=== PATIENT | female | born 1955 | race Caucasian/White ===

== ENCOUNTER → 2018-07-30 14:57 | Outpatient (CLI) | payer MEDICARE, SELFPAY | PROVIDERS: Family Provider Internal Medicine; PCP Internal Medicine; Visit Provider Physician Assistant | DX: M85.851 Other specified disorders of bone density and structure, right thigh (principal); Z78.0 Asymptomatic menopausal state; Z82.62 Family history of osteoporosis | CPT/HCPCS: 77080 ==

== ENCOUNTER → 2018-09-06 10:52 | Outpatient (CLI) | payer MEDICARE, SELFPAY ==
--- NOTE | 2018-09-06 | DI.MG.S_ITS ---
BILATERAL DIGITAL SCREENING MAMMOGRAM 3D/2D WITH CAD: 09/06/2018 CLINICAL: Routine screening. Comparison is made to exams dated: 09/03/2017 mammogram, 08/14/2016 mammogram, and 07/29/2016 mammogram - [facility]. The tissue of both breasts is heterogeneously dense. This may lower the sensitivity of mammography. Current study was also evaluated with a Computer Aided Detection (CAD) system. There are benign post operative findings in the right breast. There also are benign vascular calcifications in both breasts. No significant masses, calcifications, or other findings are seen in either breast. There has been no significant interval change. IMPRESSION: There is no mammographic evidence of malignancy. A 1 year screening mammogram is recommended. This exam was interpreted at Station ID: [id number]. NOTE: For mammograms, a report in lay terms will be sent to the patient. Approximately 15% of breast malignancies will not be visualized mammographically. In the management of a palpable breast mass, a negative mammogram must not discourage biopsy of a clinically suspicious lesion. Electronically Signed By: Robbie charlton/montrell:09/06/2018 13:13:05 letter sent: Normal Exam ACR BI-RADS Category 2: Benign Finding(s) 3342F
== END ==
PROVIDERS: PCP Physician Assistant; Visit Provider Physician Assistant
DX: Z12.31 Encounter for screening mammogram for malignant neoplasm of breast (principal)
CPT/HCPCS: 77063; 77067

== ENCOUNTER → 2019-08-02 18:53 | Outpatient (ROUT) | payer MEDICARE, SELFPAY ==
[2019-08-02 19:18] LABS: Add Manual Diff / Slide Review NO; Basophils Absolute Auto 0 /uL (0-100); Eosinophils Absolute Auto 100 /uL (0-450); Eosinophils Percent Auto 2.7 % (2-4); Hematocrit 36.5 % (36-46); Hemoglobin 12.4 g/dL (12.0-16.0); Lymphocytes Absolute Auto 1300 /uL (1100-4500); Lymphocytes Percent Auto 32.2 % (25-40); Mean Corpuscular Hemoglobin 31.2 PG (26-34); Mean Corpuscular Volume 91.8 fL (80-100); Monocytes Absolute Auto 400 /uL (0-900); Monocytes Percent Auto 9.2 % (3-14); Neutrophils Absolute Auto 2200 /uL (1500-7000); Neutrophils Percent Auto 54.9 % (50-75); Platelet Count 254 X10^3/uL (150-400); Red Blood Cell Count 3.98 X10^6/uL (4.0-5.2); Red Cell Distribution Width 12.8 % (11.6-14.8)
[2019-08-02 19:21] LABS: Alanine Aminotransferase 17 IU/L (<35); Albumin 4.5 g/dL (3.5-5.0); Albumin Globulin Ratio 1.6 (1.0-2.8); Alkaline Phosphatase 66 U/L (38-126); Aspartate Aminotransferase 34 IU/L (14-36); BUN Creatinine Ratio 22.9 (6-22); Bilirubin Total 1.2 mg/dL (0.2-1.3); Blood Urea Nitrogen 16 mg/dL (7-17); Calcium 9.8 mg/dL (8.4-10.2); Carbon Dioxide 32 mmol/L (22-32); Chloride 98 mmol/L (98-107); Cholesterol 198 mg/dL (140-199); Estimated Glomerular Filt Rate > 60.0 mL/min (>60); Globulin 2.9 g/dL (1.7-4.1); Glucose 74 mg/dL (80-110); HDL Cholesterol 76 mg/dL (40-60); HEMOLYSIS < 15 (0-50); LDL Cholesterol Calculated 111 mg/dL (<100); Potassium 3.9 mmol/L (3.4-5.1); Sodium 138 mmol/L (137-145); Total Protein 7.4 g/dL (6.3-8.2); Triglycerides 56 mg/dL (35-150)
== END ==
PROVIDERS: PCP Physician Assistant; Visit Provider Physician Assistant
DX: M85.80 Other specified disorders of bone density and structure, unspecified site (principal); E55.9 Vitamin D deficiency, unspecified; E78.2 Mixed hyperlipidemia
CPT/HCPCS: 80053; 80061; 82306; 85025

== ENCOUNTER → 2019-09-08 11:42 | Outpatient (CLI) | payer MEDICARE, SELFPAY ==
--- NOTE | 2019-09-08 | DI.MG.S_ITS ---
BILATERAL DIGITAL SCREENING MAMMOGRAM 3D/2D WITH CAD: 09/08/2019 CLINICAL: Routine screening. Comparison is made to exams dated: 09/06/2018 mammogram, 09/03/2017 mammogram, 08/14/2016 mammogram, 07/29/2016 mammogram, and 07/27/2015 mammogram - [facility]. The tissue of both breasts is heterogeneously dense. This may lower the sensitivity of mammography. Current study was also evaluated with a Computer Aided Detection (CAD) system. There are benign vascular calcifications in both breasts. There also are benign post operative findings in the right breast. No significant masses, calcifications, or other findings are seen in either breast. There has been no significant interval change. IMPRESSION: There is no mammographic evidence of malignancy. A 1 year screening mammogram is recommended. This exam was interpreted at Station ID: [id number]. NOTE: For mammograms, a report in lay terms will be sent to the patient. Approximately 15% of breast malignancies will not be visualized mammographically. In the management of a palpable breast mass, a negative mammogram must not discourage biopsy of a clinically suspicious lesion. Electronically Signed By: Eddie bravo/montrell:09/08/2019 18:45:56 letter sent: Normal Exam ACR BI-RADS Category 2: Benign Finding(s) 3342F
== END ==
PROVIDERS: PCP Physician Assistant; Visit Provider Physician Assistant
DX: Z12.31 Encounter for screening mammogram for malignant neoplasm of breast (principal)
CPT/HCPCS: 77063; 77067

== ENCOUNTER → 2020-05-20 09:36 | Outpatient (CLI) | payer MEDICARE, SELFPAY ==
[2020-05-21 14:01] LABS: COVID19 Sendout Not Detected (Not Detect)
== END ==
PROVIDERS: PCP Physician Assistant; Visit Provider Family Medicine
DX: J02.9 Acute pharyngitis, unspecified (principal); R50.9 Fever, unspecified; R53.83 Other fatigue
CPT/HCPCS: 87635

== ENCOUNTER → 2020-10-25 10:44 | Outpatient (CLI) | payer MEDICARE, SELFPAY ==
--- NOTE | 2020-10-25 | DI.MG.S_ITS ---
BILATERAL DIGITAL SCREENING MAMMOGRAM 3D/2D WITH CAD: 10/25/2020 CLINICAL: Routine Screening. Comparison is made to exams dated: 09/08/2019 mammogram, 09/06/2018 mammogram, and 09/03/2017 mammogram - [facility]. The tissue of both breasts is heterogeneously dense. This may lower the sensitivity of mammography. Current study was also evaluated with a Computer Aided Detection (CAD) system. There are benign vascular calcifications in both breasts. There also are benign post operative findings in the right breast. No significant masses, calcifications, or other findings are seen in either breast. There has been no significant interval change. IMPRESSION: BENIGN There is no mammographic evidence of malignancy. A 1 year screening mammogram is recommended. This exam was interpreted at Station ID: [id number]. NOTE: For mammograms, a report in lay terms will be sent to the patient. Approximately 15% of breast malignancies will not be visualized mammographically. In the management of a palpable breast mass, a negative mammogram must not discourage biopsy of a clinically suspicious lesion. Electronically Signed By: Tami miguel/montrell:10/25/2020 11:31:33 letter sent: Normal Exam ACR BI-RADS Category 2: Benign Finding(s) 3342F
== END ==
PROVIDERS: PCP Physician Assistant; Referring Provider Physician Assistant; Visit Provider Physician Assistant
DX: Z12.31 Encounter for screening mammogram for malignant neoplasm of breast (principal)
CPT/HCPCS: 77063; 77067

== ENCOUNTER → 2020-10-26 13:26 | Outpatient (CLI) | payer MEDICARE, SELFPAY ==
[2020-10-26 14:34] LABS: Add Manual Diff / Slide Review NO; Basophils Absolute Auto 0 /uL (0-100); Basophils Percent Auto 1.1 % (0-2); Eosinophils Absolute Auto 100 /uL (0-450); Hematocrit 36.1 % (36-46); Hemoglobin 11.9 g/dL (12.0-16.0); Lymphocytes Absolute Auto 1300 /uL (1100-4500); Lymphocytes Percent Auto 35.4 % (25-40); Mean Corpuscular Hemoglobin 30.6 PG (26-34); Mean Corpuscular Volume 92.9 fL (80-100); Monocytes Absolute Auto 400 /uL (0-900); Monocytes Percent Auto 11.3 % (3-14); Neutrophils Absolute Auto 1800 /uL (1500-7000); Neutrophils Percent Auto 49.2 % (50-75); Platelet Count 245 X10^3/uL (150-400); Red Blood Cell Count 3.89 X10^6/uL (4.0-5.2); Red Cell Distribution Width 12.9 % (11.6-14.8); White Blood Cell Count 3.7 X10^3/uL (4.5-11.0)
[2020-10-26 15:02] LABS: Alanine Aminotransferase 18 IU/L (<35); Albumin 4.4 g/dL (3.5-5.0); Albumin Globulin Ratio 1.7 (1.0-2.8); Alkaline Phosphatase 54 U/L (38-126); Aspartate Aminotransferase 32 IU/L (14-36); Blood Urea Nitrogen 14 mg/dL (7-17); Calcium 9.9 mg/dL (8.4-10.2); Carbon Dioxide 32 mmol/L (22-32); Chloride 100 mmol/L (98-107); Estimated Glomerular Filt Rate > 60.0 mL/min (>60); Globulin 2.6 g/dL (1.7-4.1); Glucose 90 mg/dL (80-110); HEMOLYSIS < 15 (0-50); Sodium 139 mmol/L (137-145)
[2020-10-26 15:29] LABS: TSH w/ Reflex to FT4 1.24 uIU/mL (0.47-4.68)
== END ==
PROVIDERS: PCP Physician Assistant; Referring Provider Physician Assistant; Visit Provider Physician Assistant
DX: R00.2 Palpitations (principal); R42 Dizziness and giddiness
CPT/HCPCS: 80053; 83735; 84443; 85025; 93005

== ENCOUNTER 2020-11-02 10:34 | Emergency (ER) | payer MEDICARE, SELFPAY ==
[2020-11-02] VITALS (8 sets, daily range): BP systolic 125–166; BP diastolic 58–73; PULSE 59–69; RESP 20–44; TEMP 36.4; O2SAT 96–98; BMI 21.6
--- NOTE | 2020-11-02 10:57 | ED.ARRPALP ---
HPI - Arrhythmia/Palpitations General Chief Complaint: Arrhythmia/Palpitations Stated Complaint: Dr wants her to get a EKG. Time Seen by Provider: 11/02/20 10:43 Source: patient Mode of arrival: Family Vehicle Limitations: no limitations History of Present Illness HPI narrative: Patient is a 65-year-old female who over the past several days/weeks has been having episodes of palpitations and some lightheadedness. She has seen her primary doctor who ordered some labs and also did an EKG in the office. The patient states she was told that she was having premature ventricular contractions. A Holter monitor was ordered however the patient states there was a mixup in the ordering process of this and she has yet to receive it in the mail. Recently she had an increase in her palpitations and also an increase in her lightheadedness she contacted her primary doctor and told her to come to the emergency department for an EKG. Related Data Allergies Allergy/AdvReac Type Severity Reaction Status Date / Time Gadolinium-Containing Allergy Unknown Verified 11/02/20 10:52 Contrast Medi [GADOLINIUM-CONTAINING CONTRAST MEDI] epinephrine [EPINEPHRINE] AdvReac Unknown INCREASED Verified 11/02/20 10:52 HEART RATE MRI DYE Allergy Unknown Uncoded 11/02/20 10:52 Review of Systems Constitutional Constitutional: Denies fever(s) and Denies headache(s) ENT Ears, Nose, Mouth, and Throat: Denies headache(s) Cardiovascular Cardiovascular: Reports chest pain, Denies rapid heart rate, Reports irregular heart rhythm, Reports lightheadedness and Denies dyspnea Respiratory Respiratory: Denies cough and Denies dyspnea Gastrointestinal Gastrointestinal: Denies abdominal pain, Denies nausea and Denies vomiting Genitourinary Genitourinary: Denies dysuria Genitourinary: Denies dysuria Integumentary/Breasts Skin/Breast: Denies lesions and Denies rash Neurologic Neurologic: Denies behavioral changes and Denies headache(s) Psychiatric Psychiatric: Denies behavioral changes Hematologic/Lymphatic On Anticoagulants: No Patient History Medical History PVCs (premature ventricular contractions) Social History Smoking Status: Never smoker Smoking Status: Never smoker alcohol intake frequency: 0-2 drinks per day Substance Use Type: does not use Exam Initial Vital Signs Initial Vital Signs: Vital Signs Pulse Rate 69 11/02/20 10:39 Blood Pressure 166/73 H 11/02/20 10:39 Pulse Oximetry 96 11/02/20 10:39 Const General: cooperative, comfortable, well developed and well groomed Limitations: mental status not altered HENCO Head: normal to inspection and normocephalic Resp Effort & Inspection: normal respiratory effort Auscultation: clear to auscultation bilaterally Cardio Rate: regular rate Rhythm: regular rhythm GI Inspection: non-distended Palpation: soft and No firm Skin Lesions: no lesions Rashes: no rashes Neuro General: patient alert and patient awake Cognition: normal cognition Speech: speech normal Extrem General: capillary refill normal Psych Appearance: grossly normal and well kempt Course Orders Ordered: ED Orders 11/02/20 10:46 EKG-12 Lead Stat 11/02/20 11:20 Basic Metabolic Panel Stat Complete Blood Count AUTO DIFF Stat Magnesium Stat Troponin & CK Cardiac Panel Stat Vital Signs Vital signs: Vital Signs - 8 hr 11/02/20 10:39 11/02/20 10:43 11/02/20 11:00 Temperature 97.6 F Pulse Rate 69 65 63 Respiratory Rate 20 Blood Pressure 166/73 H 166/73 H Pulse Oximetry 96 96 96 11/02/20 11:23 Temperature Pulse Rate 64 Respiratory Rate 20 Blood Pressure 125/58 L Pulse Oximetry 96 MDM - Arrhythmia/Palpitations Lab Data Attestation: I reviewed the patient's lab results. Result diagrams: 11/02/20 11:20 11/02/20 11:20 Labs: Lab Results 11/02/20 11/02/20 Range/Units 11:20 11:20 WBC 3.2 L (4.5-11.0) X10^3/uL RBC 3.67 L (4.0-5.2) X10^6/uL Hgb 11.5 L (12.0-16.0) g/dL Hct 33.5 L (36-46) % MCV 91.4 (80-100) fL MCH 31.3 (26-34) PG MCHC 34.3 (30-36) % RDW 12.7 (11.6-14.8) % Plt Count 205 (150-400) X10^3/uL Neut % (Auto) 49.3 L (50-75) % Lymph % (Auto) 36.5 (25-40) % [place] % (Auto) 11.0 (3-14) % Eos % (Auto) 1.9 L (2-4) % Baso % (Auto) 1.3 (0-2) % Neut # (Auto) 1600 (6842-6203) /uL Lymph # (Auto) 1200 (6829-9296) /uL [place] # (Auto) 300 (0-900) /uL Eos # (Auto) 100 (0-450) /uL Baso # (Auto) 0 (0-100) /uL Sodium 139 (137-145) mmol/L Potassium 3.9 (3.4-5.1) mmol/L Chloride 104 (98-107) mmol/L Carbon Dioxide 29 (22-32) mmol/L BUN 13 (7-17) mg/dL Creatinine 0.56 (0.52-1.04) mg/dL Estimated GFR > 60.0 (>60) mL/min BUN/Creatinine Ratio 23.2 H (6-22) Glucose 88 (80-110) mg/dL Calcium 9.4 (8.4-10.2) mg/dL Magnesium 2.0 (1.6-2.3) mg/dL Total Creatine Kinase 71 (30-135) U/L CK-MB (CK-2) TNP CK-MB (CK-2) Rel Index TNP Troponin I < 0.012 (0.01-0.034) ng/mL ECG Data Attestation: I personally reviewed and interpreted this ECG as follows: Prior ECG tracings: not available for review Interpretation: Sinus rhythm Ventricular rate of 73 Occasional PVCs/PACs No ST T wave changes MDM Narrative Medical decision making narrative: Patient is nontoxic appearing. She does have PACs/PVCs on her EKG. Her labs are unremarkable. She has already seen her primary doctor and has a Holter monitor ordered. She had no other ectopy while being monitored here in the ER. Will have her continue to follow-up with her primary doctor regarding further workup and the Holter monitor. She was given return precautions and follow-up instructions. She expressed understanding and agreement. Discharge Plan Departure Patient Disposition: Home Clinical Impression: Palpitations Instructions: Arrhythmias Activity Restrictions/Additional Instructions: Recommend that you continue with all of your scheduled appointments with your primary provider. Continue all of your medications as directed. Return to the emergency department for any new or worsening symptoms Referrals: Taina Barrios PA-C [Primary Care Provider] -
[2020-11-02 11:28] LABS: Add Manual Diff / Slide Review NO; Basophils Absolute Auto 0 /uL (0-100); Basophils Percent Auto 1.3 % (0-2); Eosinophils Absolute Auto 100 /uL (0-450); Eosinophils Percent Auto 1.9 % (2-4); Hematocrit 33.5 % (36-46); Hemoglobin 11.5 g/dL (12.0-16.0); Lymphocytes Absolute Auto 1200 /uL (1100-4500); Lymphocytes Percent Auto 36.5 % (25-40); Mean Corpuscular HGB Conc 34.3 % (30-36); Mean Corpuscular Hemoglobin 31.3 PG (26-34); Mean Corpuscular Volume 91.4 fL (80-100); Monocytes Absolute Auto 300 /uL (0-900); Neutrophils Absolute Auto 1600 /uL (1500-7000); Neutrophils Percent Auto 49.3 % (50-75); Platelet Count 205 X10^3/uL (150-400); Red Blood Cell Count 3.67 X10^6/uL (4.0-5.2); Red Cell Distribution Width 12.7 % (11.6-14.8); White Blood Cell Count 3.2 X10^3/uL (4.5-11.0)
[2020-11-02 11:39] LABS: BUN Creatinine Ratio 23.2 (6-22); Blood Urea Nitrogen 13 mg/dL (7-17); Calcium 9.4 mg/dL (8.4-10.2); Carbon Dioxide 29 mmol/L (22-32); Chloride 104 mmol/L (98-107); Creatine Kinase 71 U/L (30-135); Estimated Glomerular Filt Rate > 60.0 mL/min (>60); Glucose 88 mg/dL (80-110); HEMOLYSIS < 15 (0-50); Potassium 3.9 mmol/L (3.4-5.1); Sodium 139 mmol/L (137-145)
[2020-11-02 11:51] LABS: Troponin I < 0.012 ng/mL (0.01-0.034)
== END 2020-11-02 12:38 | disposition home or self-care (01) ==
PROVIDERS: Emergency Provider Emergency Medicine; PCP Physician Assistant; Referring Provider Emergency Medicine
DX: R00.2 Palpitations (principal); R07.9 Chest pain, unspecified; R42 Dizziness and giddiness
CPT/HCPCS: 36415; 80048; 82550; 83735; 84484; 85025; 93005; 93010; 99283; 99284

== ENCOUNTER → 2021-10-31 10:16 | Outpatient (CLI) | payer MEDICARE, SELFPAY ==
--- NOTE | 2021-10-31 | DI.MG.S_ITS ---
BILATERAL DIGITAL SCREENING MAMMOGRAM 3D/2D WITH CAD: 10/31/2021 CLINICAL: Routine screening. Comparison is made to exams dated: 10/25/2020 mammogram, 09/08/2019 mammogram, and 09/06/2018 mammogram - . The tissue of both breasts is heterogeneously dense. This may lower the sensitivity of mammography. Current study was also evaluated with a Computer Aided Detection (CAD) system. There are benign vascular calcifications in both breasts. There also are benign post operative findings in the right breast. No significant masses, calcifications, or other findings are seen in either breast. There has been no significant interval change. IMPRESSION: BENIGN There is no mammographic evidence of malignancy. A 1 year screening mammogram is recommended. This exam was interpreted at Station ID: [id number]. NOTE: For mammograms, a report in lay terms will be sent to the patient. Approximately 15% of breast malignancies will not be visualized mammographically. In the management of a palpable breast mass, a negative mammogram must not discourage biopsy of a clinically suspicious lesion. Electronically Signed By: Pedro campa/montrell:10/31/2021 11:06:26 letter sent: Normal Exam ACR BI-RADS Category 2: Benign Finding(s) 3342F
== END ==
PROVIDERS: PCP Physician Assistant; Referring Provider Physician Assistant; Visit Provider Physician Assistant
DX: Z12.31 Encounter for screening mammogram for malignant neoplasm of breast (principal)
CPT/HCPCS: 77063; 77067

== ENCOUNTER → 2022-11-05 11:00 | Outpatient (CLI) | payer MEDICARE, SELFPAY ==
--- NOTE | 2022-11-05 | DI.MG.S_ITS ---
BILATERAL DIGITAL SCREENING MAMMOGRAM 3D/2D WITH CAD: 11/05/2022 CLINICAL: Routine screening. Comparison is made to exams dated: 10/31/2021 mammogram, 10/25/2020 mammogram, and 09/08/2019 mammogram - [facility]. Both breasts are heterogeneously dense, which may obscure small masses (category c / 51-75% glandular tissue). Current study was also evaluated with a Computer Aided Detection (CAD) system. There are benign vascular calcifications in both breasts. There also are benign post operative findings in the right breast. No significant masses, calcifications, or other findings are seen in either breast. There has been no significant interval change. IMPRESSION: BENIGN There is no mammographic evidence of malignancy. A 1 year screening mammogram is recommended. Based on the Tyrer Cuzick model (a risk assessment model) the patient's lifetime risk is 10.8% and her 10 year risk is 6.4%. According to the ACR, ACS, and NCCN guidelines, an annual breast MRI exam along with mammogram is recommended if the patient's lifetime risk is 20% or greater. This exam was interpreted at Station ID: [id number]. NOTE: For mammograms, a report in lay terms will be sent to the patient. Approximately 15% of breast malignancies will not be visualized mammographically. In the management of a palpable breast mass, a negative mammogram must not discourage biopsy of a clinically suspicious lesion. Electronically Signed By: Pedro campa/montrell:11/06/2022 12:01:44 letter sent: Normal Exam ACR BI-RADS Category 2: Benign Finding(s) 3342F
== END ==
PROVIDERS: PCP Physician Assistant; Referring Provider Physician Assistant; Visit Provider Physician Assistant
DX: Z12.31 Encounter for screening mammogram for malignant neoplasm of breast (principal)
CPT/HCPCS: 77063; 77067

== ENCOUNTER → 2023-08-05 06:48 | Outpatient (CLI) | payer MEDICARE, SELFPAY ==
--- NOTE | 2023-08-05 06:49 | DI.US.S_ITS ---
PROCEDURE: US ABDOMEN LIMITED INDICATIONS: RIGHT MID/LOWER INTERMITTENT PALPABLE LUMP. ?HERNIA. TECHNIQUE: Real-time scanning was performed of the abdominal and retroperitoneal organs, with image documentation. COMPARISON: None. FINDINGS: There is no sonographic abnormality in the right mid abdomen or the right lower quadrant to correspond with the area palpated by the patient. IMPRESSION: No sonographic abnormality which corresponds as palpated. Dictated by: Nadiya Mitchell M.D. on 08/05/2023 at 9:17 Approved by: Nadiya Mitchell M.D. on 08/05/2023 at 9:18
== END ==
PROVIDERS: PCP Nurse Practitioner; Referring Provider Nurse Practitioner; Visit Provider Nurse Practitioner
DX: K46.9 Unspecified abdominal hernia without obstruction or gangrene (principal)
CPT/HCPCS: 76705

== ENCOUNTER 2023-10-28 09:58 | Emergency (ER) | payer MEDICARE, SELFPAY ==
[2023-10-28] VITALS (9 sets, daily range): BP systolic 99–125; BP diastolic 50–62; PULSE 59–83; RESP 16–24; O2SAT 97–99; BMI 21.4
--- NOTE | 2023-10-28 10:09 | DI.RAD.S_ITS ---
PROCEDURE: XR CHEST 1V INDICATIONS: chest pain TECHNIQUE: One view of the chest was acquired. COMPARISON: None. FINDINGS: Surgical changes and devices: None. Lungs and pleura: Lungs are clear. No pleural effusions or pneumothorax. Mediastinum: Mediastinal contours appear normal. Heart size is normal. Bones and chest wall: No suspicious bony lesions. Overlying soft tissues appear unremarkable. IMPRESSION: No acute cardiopulmonary abnormality is seen. Dictated by: Gerri Hunter M.D. on 10/28/2023 at 10:32 Approved by: Gerri Hunter M.D. on 10/28/2023 at 10:32
--- NOTE | 2023-10-28 10:12 | PC.NURSE ---
Kaden reports for the last 5 days she has felt a pounding sensation in her chest and can hear her heart pounding in ears. Denies chest pain denies irregular heart beat sensation. States she has noticed shortness of breath mild with excertion. Had COVID in sep. Patient reports some dizziness and lightheaded sensations, HX of PVC
--- NOTE | 2023-10-28 10:18 | PC.NURSE ---
Patient states she has a nauseous sensation like stuff is getting stuck Points to epigastric region, worse with eating and laying flat.
[2023-10-28 10:22] LABS: Add Manual Diff / Slide Review NO; Basophils Absolute Auto 0 /uL (0-100); Basophils Percent Auto 1.2 % (0-2); Eosinophils Absolute Auto 0 /uL (0-450); Eosinophils Percent Auto 1.3 % (2-4); Hematocrit 35.7 % (36-46); Hemoglobin 11.9 g/dL (12.0-16.0); Lymphocytes Absolute Auto 1100 /uL (1100-4500); Lymphocytes Percent Auto 29.3 % (25-40); Mean Corpuscular HGB Conc 33.4 % (30-36); Monocytes Absolute Auto 400 /uL (0-900); Monocytes Percent Auto 9.9 % (3-14); Neutrophils Absolute Auto 2200 /uL (1500-7000); Neutrophils Percent Auto 58.3 % (50-75); Platelet Count 286 X10^3/uL (150-400); Red Blood Cell Count 3.96 X10^6/uL (4.0-5.2); Red Cell Distribution Width 13.2 % (11.6-14.8); White Blood Cell Count 3.8 X10^3/uL (4.5-11.0)
[2023-10-28 10:31] LABS: Prothrombin Time 11.5 SECONDS (9.4-12.5)
[2023-10-28 10:33] LABS: Alanine Aminotransferase 22 IU/L (<35); Albumin 4.4 g/dL (3.5-5.0); Albumin Globulin Ratio 1.4 (1.0-2.8); Alkaline Phosphatase 52 U/L (38-126); Aspartate Aminotransferase 33 IU/L (14-36); Bilirubin Total 1.2 mg/dL (0.2-1.3); Blood Urea Nitrogen 14 mg/dL (7-17); Calcium 9.4 mg/dL (8.4-10.2); Carbon Dioxide 33 mmol/L (22-32); Chloride 105 mmol/L (98-107); Creatine Kinase 89 U/L (30-135); Estimated Glomerular Filt Rate > 60 mL/min (>60); Globulin 3.2 g/dL (1.7-4.1); Glucose 80 mg/dL (80-110); HEMOLYSIS < 15 (0-50); Lipase 113 U/L (23-300); PTT Partial Thromboplastin Tim 32 SECONDS (25.1-36.5); Sodium 140 mmol/L (137-145); Total Protein 7.6 g/dL (6.3-8.2)
[2023-10-28 10:45] LABS: Troponin I < 0.012 ng/mL (0.01-0.034)
--- NOTE | 2023-10-28 10:54 | ED_ITS ---
HPI - Arrhythmia/Palpitations General Chief Complaint: Arrhythmia/Palpitations Stated Complaint: sob fatigue dizziness rapid hr Time Seen by Provider: 10/28/23 10:21 Mode of arrival: Family Vehicle History of Present Illness HPI narrative: 68-year-old female with history of PVCs who presents with complaint of rapid heart rate on and off for the past 5 days she states when it happens it seems to be 4 hours it feels fast but not a regular. She will feel dizzy but has not had any syncope. She denies chest pain or pressure. She feels very mildly short of breath when it occurs. No diaphoresis. She will get little nauseated but no vomiting. She states her bowel movements were loose but they have improved. She denies any urinary symptoms. No swelling in extremities. Patient does note she was positive for COVID on the 12 of October she tested negative on the 21 of October. She states symptoms have overall resolved. She has a little bit stressed 1 of her pets is very sick and dying. Patient notes home medications include gabapentin 300 mg nightly, alprazolam PRN she took a 0.125 mg last night which was helpful. And take felt cycler beer PRN. Patient does have a history of PVCs. States only surgery was embolization for fibroids and a deviated septum. Allergic to gadolinium. No tobacco, 1 or 2 alcoholic drinks nightly, no recreational drugs. Follows with Karson Santos. Related Data Home Medications Medication Instructions Recorded Confirmed alprazolam 0.25 mg tablet 0.125 mg PO BEDTIME PRN anxiety 07/22/23 07/22/23 calcium [calcium citrate] 1 tab PO .QD 07/22/23 07/22/23 cetirizine 10 mg tablet (Zyrtec) 10 mg PO DAILY PRN 07/22/23 07/22/23 fluticasone propionate 50 1 spray intranasal DAILY 07/22/23 07/22/23 mcg/actuation nasal spray,suspension gabapentin 300 mg capsule 300 mg PO BEDTIME 07/22/23 07/22/23 omega 1-zsi-jbr-fish oil 1,200 mg cap PO 07/22/23 07/22/23 (144 mg-216 mg) capsule (Fish Oil) sodium bicarbonate-sodium ea .Route 07/22/23 07/22/23 chloride-neti pot nasal rinse with packet (Sinus Wash Neti Pot with packet) Previous Rx's Medication Instructions Recorded azithromycin 250 mg tablet See Rx Instructions PO .COMPLEX #6 07/22/23 (Zithromax) tabs valacyclovir 1 gram tablet 2,000 mg (2 x 1 gram) PO Q12H PRN 07/22/23 herpes simplex outbreaks #30 tabs sodium,potassium,mag sulfates 17.5 See Rx Instructions PO .COMPLEX 10/07/23 gram-3.13 gram-1.6 gram oral soln #354 mL (Suprep Bowel Prep Kit) Allergies Allergy/AdvReac Type Severity Reaction Status Date / Time Gadolinium-Containing Allergy Unknown Verified 10/28/23 10:10 Contrast Medi [GADOLINIUM-CONTAINING CONTRAST MEDI] epinephrine [EPINEPHRINE] AdvReac Unknown INCREASED Verified 10/28/23 10:10 HEART RATE MRI DYE Allergy Unknown Uncoded 10/28/23 10:10 Review of Systems Review of Systems ROS Unobtainable: All systems reviewed & are unremarkable except as noted in HPI and below Patient History Medical History Actinic keratosis Osteoarthritis Allergies Restless leg syndrome History of herpes simplex infection Recurrent sinusitis Fibroids (~2004) Hyperlipidemia Abdominal hernia History of skin cancer Anxiety Osteopenia after menopause (~2012) PVCs (premature ventricular contractions) Surgical History Anesthesia Status post embolization of uterine artery (~2004) Deviated nasal septum (~1994) Family History Father Cerebral degeneration Mother Skin cancer Stroke Grandmother History of heart disease Grandmother History of heart disease Grandfather History of heart disease Grandfather History of heart disease Social History Smoking Status: Never smoker Smoking Status: Never smoker alcohol intake frequency: 0-2 drinks per day Substance Use Type: does not use Exam Narrative Exam Narrative: GENERAL: Alert and oriented x three, female in mild distress. HEENT: Head normocephalic, atraumatic, EOMI, pupils reactive, face symmetric, moist mucous membranes NECK: Supple, full range of motion CARDIOVASCULAR: Regular rate and rhythm without murmurs, rubs or gallops. No JVD. No edema. RESPIRATORY: Breath sounds equal bilaterally, no wheezes rales or rhonchi. No tachypnea or accessory muscle use. ABDOMEN: Soft, nontender. Normoactive bowel sounds all 4 quadrants. No guarding or rebound, rigidity, no mass : No CVA tenderness EXTREMITIES: Normal range of motion, no clubbing or edema. Neurovascularly intact NEUROLOGICAL: Cranial nerves II through XII grossly intact. Moving all extremities SKIN: Warm, dry, no petechiae, no rashes or lesions. Initial Vital Signs Initial Vital Signs: Vital Signs Pulse Rate 83 10/28/23 10:06 Pulse Oximetry 98 10/28/23 10:06 Course Orders Ordered: Discontinued Medications Aspirin (Aspirin 81 Mg Chew Tab) 324 mg PO NOW ONE Stop: 10/28/23 10:10 Last Admin: 10/28/23 11:17 Dose: Not Given Documented By: [facility] Vital Signs Vital signs: Vital Signs - 8 hr 10/28/23 10:06 10/28/23 10:07 10/28/23 10:07 Pulse Rate 83 72 Respiratory Rate 20 Blood Pressure 125/58 L 125/58 L Pulse Oximetry 98 99 Oxygen Delivery Method Room Air 10/28/23 10:07 Pulse Rate 69 Respiratory Rate Blood Pressure Pulse Oximetry 98 Oxygen Delivery Method MDM - Arrhythmia/Palpitations Lab Data 10/28/23 10:11 10/28/23 10:11 Labs: Lab Results 10/28/23 10/28/23 Range/Units 10:11 12:10 WBC 3.8 L (4.5-11.0) X10^3/uL RBC 3.96 L (4.0-5.2) X10^6/uL Hgb 11.9 L (12.0-16.0) g/dL Hct 35.7 L (36-46) % MCV 90.0 (80-100) fL MCH 30.0 (26-34) PG MCHC 33.4 (30-36) % RDW 13.2 (11.6-14.8) % Plt Count 286 (150-400) X10^3/uL Neut % (Auto) 58.3 (50-75) % Lymph % (Auto) 29.3 (25-40) % Foster % (Auto) 9.9 (3-14) % Eos % (Auto) 1.3 L (2-4) % Baso % (Auto) 1.2 (0-2) % Neut # (Auto) 2200 (3112-9166) /uL Lymph # (Auto) 1100 (4316-1411) /uL Foster # (Auto) 400 (0-900) /uL Eos # (Auto) 0 (0-450) /uL Baso # (Auto) 0 (0-100) /uL PT 11.5 (9.4-12.5) SECONDS INR 1.0 (0.9-1.3) APTT 32 (25.1-36.5) SECONDS D-Dimer 322 (<500) ng/ml Sodium 140 (137-145) mmol/L Potassium 4.0 (3.4-5.1) mmol/L Chloride 105 (98-107) mmol/L Carbon Dioxide 33 H (22-32) mmol/L BUN 14 (7-17) mg/dL Creatinine 0.61 (0.52-1.04) mg/dL Estimated GFR > 60 (>60) mL/min BUN/Creatinine Ratio 23.0 H (6-22) Glucose 80 (80-110) mg/dL Calcium 9.4 (8.4-10.2) mg/dL Magnesium 2.0 (1.6-2.3) mg/dL Total Bilirubin 1.2 (0.2-1.3) mg/dL AST 33 (14-36) IU/L ALT 22 (<35) IU/L Alkaline Phosphatase 52 (38-126) U/L Total Creatine Kinase 89 (30-135) U/L Troponin I < 0.012 < 0.012 (0.01-0.034) ng/mL Total Protein 7.6 (6.3-8.2) g/dL Albumin 4.4 (3.5-5.0) g/dL Globulin 3.2 (1.7-4.1) g/dL Albumin/Globulin Ratio 1.4 (1.0-2.8) Lipase 113 (23-300) U/L Imaging Data Chest x-ray: Radiologist's Impresson: Rosy Enriquez?(Yecenia)??She/Her/Hers??68??F??1955 ? Allergy/Adv: Gadolinium-Containing Contrast Medi, epinephrine, [MRI DYE] (More??) Close Chest X-Ray (Signed) Gerri Hnuter - 10/28/23 Abdomen Ultrasound (Signed) StephenCarleyNadiya - 08/05/23 Mammogram Screening (Signed) Pedro Stephenson - 11/05/22 Mammogram Screening (Signed) Pedro Stephenson - 10/31/21 Mammogram Screening (Signed) OrtizTami - 10/25/20 Mammogram Screening (Signed) BerkleyEddie - 09/08/19 Mammogram Screening (Signed) Robbie Dow - 09/06/18 Bone Densitometry 07/30/18 Launch?[address] [address] XRay Report Signed Patient: Rosy Enriquez MR#: [id number] : 1955 Acct:[id number] Age/Sex: 68 / F Date of Service: 10/28/23 Loc: ED Accession Number: [id number] Procedure: XR chest 1V Ordering Provider: Bela Castillo D.O. PROCEDURE: XR CHEST 1V INDICATIONS: chest pain TECHNIQUE: One view of the chest was acquired. COMPARISON: None. FINDINGS: Surgical changes and devices: None. Lungs and pleura: Lungs are clear. No pleural effusions or pneumothorax. Mediastinum: Mediastinal contours appear normal. Heart size is normal. Bones and chest wall: No suspicious bony lesions. Overlying soft tissues appear unremarkable. IMPRESSION: No acute cardiopulmonary abnormality is seen. Dictated by: Gerri Hunter M.D. on 10/28/2023 at 10:32 Approved by: Gerri Hunter M.D. on 10/28/2023 at 10:32 ECG Data Attestation: I personally reviewed and interpreted this ECG as follows: Prior ECG tracings: available for review Interpretation: Sinus rhythm rate of 66 OR 140 QRS 82 QTC of 402. No acute ST elevation or depression noted patient has prior from 11/02/2020 which appears similar. Repeat EKG shows a rhythm of 62 OR 140 QRS 80 QTC of 412. No acute ST changes. MDM Narrative Medical decision making narrative: 68-year-old female comes in with complaint of palpitations feeling her heart is fast but not irregular for the past 5 days with some dizziness that comes and goes. She does not feel symptomatic in the department. She did have COVID in the last month. Does not have a lot of cardiac risk factors has had PVCs in the past but no other known cardiac events. Labs show white count of 3.8 consistent with priors, hemoglobin 11.9 and also consistent with priors from 2020. platelets of 286. Negative coags, normal creatinine 0.6, BUN of 14 with sodium 140 potassium of 4, chloride of 105 and a CO2 of 33 glucose 80, LFTs are negative, troponin is negative. Troponin was repeated at 2 hours and is negative. D-dimer obtained secondary to recent COVID infection potential for hypercoagulability. D-dimer is negative. Chest x-ray is negative for acute change. EKG appears similar to prior from 2020 was sinus rhythm. No additional changes on telemetry while here department. Discussed with patient plan for follow up with primary for Holter or ZIO patch and return precautions. Discharge Plan Departure Patient Disposition: Home Clinical Impression: Palpitations Instructions: DI for Palpitations Activity Restrictions/Additional Instructions: Follow up with your primary care physician for recheck, they may discuss ordering a Holter monitor or ZIO patch if you are having persistent symptoms. Your labs show slightly low white count consistent with priors as well as anemia which is also consistent with your prior labs. Please return for recurrent or persistent fast heart rate, passing out, new chest pain, shortness of breath, diaphoresis, vomiting, new swelling of extremities or other new or concerning changes. Prescriptions: No Action sodium,potassium,mag sulfates [Suprep Bowel Prep Kit] 17.5-3.13-1.6 gram recon soln See Rx Instructions PO .COMPLEX Qty: 354 0RF Rx Instructions: take as directed by Physician gabapentin 300 mg capsule 300 mg PO BEDTIME alprazolam 0.25 mg tablet 0.125 mg PO BEDTIME PRN (Reason: anxiety) Patient Comments: Taken as needed, which probably averages about once a month calcium [calcium citrate] 1 tab PO .QD omega 9-dkq-niz-fish oil [Fish Oil] 1,200 (144-216) mg capsule PO cetirizine [Zyrtec] 10 mg tablet 10 mg PO DAILY PRN fluticasone propionate 50 mcg/actuation spray,suspension 1 spray intranasal DAILY Rx Instructions: administer into each nostril Sinus Wash Neti Pot Packet With Rinse Device .Route Rx Instructions: Use Neti type pot versus squeeze bottle nasal spray daily azithromycin [Zithromax] 250 mg tablet See Rx Instructions PO .COMPLEX Qty: 6 0RF Rx Instructions: For 250 mg dose pack: take 500 mg today (day 1), then 250 mg for 4 days (days 2-5) PO valacyclovir 1 gram tablet 2,000 mg PO Q12H PRN (Reason: herpes simplex outbreaks) Qty: 30 3RF Rx Instructions: Take 2 tabs at onset of symptoms and another 2 tabs 12 hours after that, rx may treat multiple outbreaks Referrals: Genesis Santos ARNP [Primary Care Provider] - Stand Alone Forms: Patient Portal/API
[2023-10-28 11:20] LABS: D Dimer 322 ng/ml (<500)
[2023-10-28 12:40] LABS: Troponin I < 0.012 ng/mL (0.01-0.034)
== END 2023-10-28 13:28 | disposition home or self-care (01) ==
PROVIDERS: Emergency Provider Emergency Medicine; PCP Nurse Practitioner
DX: R00.2 Palpitations (principal); R07.9 Chest pain, unspecified; R42 Dizziness and giddiness; Z86.16 Personal history of COVID-19
CPT/HCPCS: 36415; 71045; 80053; 82550; 83690; 83735; 84484; 85025; 85379; 85610; 85730; 93005; 93010; 99284

== ENCOUNTER → 2023-11-09 09:15 | Outpatient (CLI) | payer MEDICARE, SELFPAY ==
--- NOTE | 2023-11-09 09:18 | DI.RAD.S_ITS ---
Bone Density Report Name: JOE NAZARIO Age: 68 Sex: Female Ethnicity: White Date of : 1955 Indication: osteopenia; Referring Provider: JASBIR WASHBURN Study: Bone densitometry was performed. Exam Date: November 09, 2023 Accession number: [id number] Bone Density: Region BMD T-score Z-score Classification AP Spine(L1-L4) 0.770 -2.5 -0.4 Osteoporosis Femoral Neck (Left) 0.559 -2.6 -0.8 Osteoporosis Total Hip (Left) 0.703 -2.0 -0.4 Osteopenia Femoral Neck (Right) 0.548 -2.7 -0.9 Osteoporosis Total Hip (Right) 0.689 -2.1 -0.6 Osteopenia Total Hip Mean 0.696 -2.1 -0.5 Osteopenia World Health Organization criteria for BMD impression classify patients as: Normal (T-score at or above -1.0), Osteopenia (T-score between -1.0 and -2.5), or Osteoporosis (T-score at or below -2.5). 10-year Fracture Risk: FRAX not reported because: Some T-score for Spine Total or Hip Total or Femoral Neck at or below -2.5 Previous Exams: -- Region Exam Age BMD T-score BMD Change BMD Change Date g/cm2 vs Baseline vs Previous -- AP Spine (L1-L4) 11/09/2023 68 0.770 -2.5 -0.086 (-10.1%)# -0.057 (-6.9%)# 07/30/2018 62 0.827 -2.0 -0.029 (-3.4%)* -0.029 (-3.4%)* 07/27/2015 59 0.856 -1.7 Total Hip(Left) 11/09/2023 68 0.703 -2.0 -0.078 (-10.0%)# -0.046 (-6.1%)# 07/30/2018 62 0.748 -1.6 -0.032 (-4.1%)* -0.032 (-4.1%)* 07/27/2015 59 0.781 -1.3 Total Hip(Right) 11/09/2023 68 0.689 -2.1 -0.099 (-12.5%)# -0.075 (-9.8%)# 07/30/2018 62 0.764 -1.5 -0.024 (-3.0%) -0.024 (-3.0%) 07/27/2015 59 0.788 -1.3 -- *Denotes significance at 95% confidence level, LSC for AP Spine = 0.022 g/cm2, LSC for Total Hip = 0.027 g/cm2 # Denotes dissimilar scan types or analysis methods Impression: The patient has osteoporosis, based on the Right Femoral Neck T-score. No significant bone loss was observed. Discussion: INCREASED RISK OF FRACTURE. BONE DENSITY IS UNDESIRABLY LOW AT ONE OR MORE SKELETAL SITES, CONSISTENT WITH POSTMENOPAUSAL OSTEOPOROSIS. This patient's lowest T-score meets the World Health Organization's (WHO) criteria for osteoporosis at one or more sites (T-score -2.5 or below). In untreated patients, the risk of osteoporotic fracture increases approximately two-fold for each 1.0 SD decrease in T-score. Low bone density is not the only risk factor for fracture; also consider factors such as patient's age, frailty or poor health, risk of falling, risk of injury, previous osteoporotic fracture, family history of osteoporosis, cigarette smoking, low body weight, etc. Not everyone with low bone mineral density has osteoporosis; osteomalacia and other metabolic bone disorders should also be considered. Patients who have osteoporosis should be evaluated for specific diseases and conditions (secondary causes) that may cause or contribute to bone loss. The [place] Association of Clinical Endocrinologists (AACE) and National Osteoporosis Foundation (NOF) recommend pharmacologic intervention for all postmenopausal women whose T-score is in this range. The patient should follow a healthful lifestyle (good nutrition with adequate calcium and vitamin D, and appropriate weight-bearing exercise). Follow-Up: Consider a repeat BMD and Vertebral Fracture Assessment (VFA) exam in 2 years or sooner if medically necessary, to reassess this patient's status. Reported by: THADDEUS BEAVER M.D. on 11/09/2023 10:01:00 AM.
--- NOTE | 2023-11-09 09:18 | DI.MG.S_ITS ---
BILATERAL DIGITAL SCREENING MAMMOGRAM 3D/2D WITH CAD: 11/09/2023 CLINICAL: Routine screening. Comparison is made to exams dated: 11/05/2022 mammogram, 10/31/2021 mammogram, 10/25/2020 mammogram, and 09/08/2019 mammogram - [facility]. Both breasts are heterogeneously dense, which may obscure small masses (category c / 51-75% glandular tissue). Current study was also evaluated with a Computer Aided Detection (CAD) system. No significant masses, calcifications, or other findings are seen in either breast. There has been no significant interval change. IMPRESSION: NEGATIVE There is no mammographic evidence of malignancy. A 1 year screening mammogram is recommended. Based on the Tyrer Cuzick model (a risk assessment model) the patient's lifetime risk is 10.3% and her 10 year risk is 6.5%. According to the ACR, ACS, and NCCN guidelines, an annual breast MRI exam along with mammogram is recommended if the patient's lifetime risk is 20% or greater. This exam was interpreted at Station ID: [id number]. NOTE: For mammograms, a report in lay terms will be sent to the patient. Approximately 15% of breast malignancies will not be visualized mammographically. In the management of a palpable breast mass, a negative mammogram must not discourage biopsy of a clinically suspicious lesion. Electronically Signed By: Eddie bravo/montrell:11/09/2023 10:19:53 letter sent: Normal Exam ACR BI-RADS Category 1: Negative 3341F
== END ==
PROVIDERS: PCP Nurse Practitioner; Referring Provider Nurse Practitioner; Visit Provider Nurse Practitioner
DX: Z12.31 Encounter for screening mammogram for malignant neoplasm of breast (principal); M81.0 Age-related osteoporosis without current pathological fracture; R92.333 Mammographic heterogeneous density, bilateral breasts
CPT/HCPCS: 77063; 77067; 77080

== ENCOUNTER → 2023-11-18 07:49 | Outpatient (CLI) | payer MEDICARE, SELFPAY ==
[2023-11-18 09:58] LABS: Alanine Aminotransferase 17 IU/L (<35); Albumin 3.9 g/dL (3.5-5.0); Albumin Globulin Ratio 1.3 (1.0-2.8); Alkaline Phosphatase 50 U/L (38-126); Aspartate Aminotransferase 29 IU/L (14-36); Blood Urea Nitrogen 14 mg/dL (7-17); Calcium 9.3 mg/dL (8.4-10.2); Carbon Dioxide 28 mmol/L (22-32); Chloride 105 mmol/L (98-107); Cholesterol 184 mg/dL (140-199); Estimated Glomerular Filt Rate > 60 mL/min (>60); Glucose 81 mg/dL (80-110); HDL Cholesterol 74 mg/dL (40-60); HEMOLYSIS < 15 (0-50); LDL Cholesterol Calculated 100 mg/dL (<100); Potassium 4.2 mmol/L (3.4-5.1); Sodium 139 mmol/L (137-145); Total Protein 6.9 g/dL (6.3-8.2); Triglycerides 50 mg/dL (35-150)
[2023-11-18 10:01] LABS: Free T3, Triiodothyronine Free 3.75 pg/mL (2.77-5.27); Free T4, Direct Thyroxine 1.15 ng/dL (0.78-2.19)
[2023-11-18 10:15] LABS: Thyroid Stimulating Hormone 2.07 uIU/mL (0.47-4.68)
[2023-11-20 09:42] LABS: HIV 1 & 2 Ab/Ag 4th Gen Combo NEGATIVE (NEGATIVE); Hep C Virus Ab w/Reflex Quant NEGATIVE s/c (NEGATIVE)
== END ==
PROVIDERS: PCP Nurse Practitioner; Referring Provider Nurse Practitioner; Visit Provider Nurse Practitioner
DX: E78.5 Hyperlipidemia, unspecified (principal); F41.9 Anxiety disorder, unspecified; M85.80 Other specified disorders of bone density and structure, unspecified site; Z78.0 Asymptomatic menopausal state; Z79.899 Other long term (current) drug therapy; Z11.4 Encounter for screening for human immunodeficiency virus [HIV]; Z11.59 Encounter for screening for other viral diseases
CPT/HCPCS: 36415; 80053; 80061; 84439; 84443; 84481; 86803; 87389

== ENCOUNTER 2023-12-03 07:01 | Day surgery (SDC) | payer MEDICARE, SELFPAY ==
[2023-12-03] VITALS (8 sets, daily range): BP systolic 112–137; BP diastolic 57–73; PULSE 63–86; RESP 14–16; TEMP 36.2–37.1; O2SAT 97–98
[2023-12-03] MEDS: LACTATED RINGERS 1,000 ML 42 ML IV (07:31)
--- NOTE | 2023-12-03 07:40 | P.HP_ITS ---
History of Present Illness History of Present Illness Date Patient Seen: 12/03/23 Time Patient Seen: 07:40 Chief complaint: Screening Colonoscopy Narrative: Yecenia is a 68-year-old woman who is here for colonoscopy. She has no family history of colon cancer. Her last colonoscopy was about 10 years ago and was normal. She was told she had a ?tortuous? colon. [facility] Medical History Actinic keratosis Osteoarthritis Allergies Restless leg syndrome History of herpes simplex infection Recurrent sinusitis Fibroids (~2004) Hyperlipidemia Abdominal hernia History of skin cancer Anxiety Osteopenia after menopause (~2012) PVCs (premature ventricular contractions) Surgical History Anesthesia Status post embolization of uterine artery (~2004) Deviated nasal septum (~1994) Family History Father Cerebral degeneration Mother Skin cancer Stroke Grandmother History of heart disease Grandmother History of heart disease Grandfather History of heart disease Grandfather History of heart disease Social History Smoking Status: Never smoker alcohol intake: current Meds Home Medications and Allergies Home Medications Medication Instructions Recorded Confirmed Type alprazolam 0.25 mg tablet 0.125 mg PO BEDTIME PRN anxiety 07/22/23 12/03/23 History calcium [calcium citrate] 1 tab PO .QD 07/22/23 12/03/23 History cetirizine 10 mg tablet (Zyrtec) 10 mg PO DAILY PRN Cold Sores 07/22/23 12/03/23 History gabapentin 300 mg capsule 300 mg PO BEDTIME 07/22/23 12/03/23 History omega 0-kry-prj-fish oil 1,200 mg cap PO 07/22/23 11/17/23 History (144 mg-216 mg) capsule (Fish Oil) sodium bicarbonate-sodium ea .Route 07/22/23 11/17/23 History chloride-neti pot nasal rinse with packet (Sinus Wash Neti Pot with packet) valacyclovir 1 gram tablet 2,000 mg (2 x 1 gram) PO Q12H PRN 07/22/23 12/03/23 Rx herpes simplex outbreaks #30 tabs sodium,potassium,mag sulfates 17.5 See Rx Instructions PO .COMPLEX 10/07/23 12/03/23 Rx gram-3.13 gram-1.6 gram oral soln #354 mL (Suprep Bowel Prep Kit) Allergies Allergy/AdvReac Type Severity Reaction Status Date / Time Gadolinium-Containing Allergy Unknown Verified 10/28/23 10:10 Contrast Medi [GADOLINIUM-CONTAINING CONTRAST MEDI] epinephrine [EPINEPHRINE] AdvReac Unknown INCREASED Verified 10/28/23 10:10 HEART RATE MRI DYE Allergy Unknown Uncoded 10/28/23 10:10 Exam Vital Signs (past 8 hours): - 12/03/23 07:11 Temperature 98.8 F Pulse Rate 86 Respiratory Rate 14 Blood Pressure 112/73 Pulse Oximetry 97 Oxygen Delivery Method Room Air Oxygen Delivery Method Room Air Const General: healthy appearing Resp Effort & Inspection: normal respiratory effort Assessment & Plan Assessment and plan (1) Colon cancer screening: Status: Acute Plan We reviewed the risks and benefits of colonoscopy for colon cancer screening and she would like to proceed.
--- NOTE | 2023-12-03 08:19 | PM.OP.COLON ---
Operative Date/Time/Diagnoses Date of procedure: 12/03/23 Time of procedure: 08:19 Pre-op diagnosis: Colon cancer screening Post-op diagnosis: same Procedure & Clinicians Study performed: Colonoscopy Same procedure as scheduled: Yes Surgeon: Yoni Noble Procedure Notes Procedure in detail: Surgeon: Yoni Noble MD Anesthesia: Hermila Calvert CRNA Procedure: The patient was brought to the endoscopy suite, placed in left lateral decubitus position. The patient was connected to monitoring devices. A time-out was performed. Sedation was administered. Once the patient was adequately sedated, a digital rectal exam was performed and a prolapsed internal hemorrhoid was noted. The scope was then inserted and advanced to the cecum where the appendiceal orifice was identified and photographed. The colon was tortuous as previously noted and required abdominal pressure and the use of the stiffener to reach the cecum. The scope was then slowly withdrawn over greater than 6 minutes. The mucosa was thoroughly inspected. No abnormalities were found. The scope was retroflexed in the rectum. Internal hemorrhoids were noted. The scope was straightened and removed. The patient was awakened and brought to recovery. Scope withdrawal time: 9 minutes Sedation time: 31 minutes EBL: 0 Findings: Normal colon Post-procedure Disposition: PACU
--- NOTE | 2023-12-03 08:32 | DI.RAD.S_ITS ---
PROCEDURE: XR KUB INDICATIONS: decubs for free air post colonoscopy TECHNIQUE: One view of the abdomen acquired. COMPARISON: None. FINDINGS: Surgical changes and devices: None. Bowel: Bowel gas pattern is normal. Non dependent air is present but appears to be intraluminal. No air below the hemidiaphragms. Soft tissues: No suspicious abdominal calcifications. Visualized solid organ contours appear normal in size. Bones: No suspicious bony lesions. IMPRESSION: No definitive visualized free air. Dictated by: Karena Siu M.D. on 12/03/2023 at 8:58 Approved by: Karena Siu M.D. on 12/03/2023 at 9:05
== END 2023-12-03 09:25 | disposition home or self-care (01) ==
PROVIDERS: PCP Nurse Practitioner; Referring Provider Surgery; Visit Provider Surgery
PROC: 0DJD8ZZ Inspection of Lower Intestinal Tract, Via Natural or Artificial Opening Endoscopic (ICD-10-PCS; CPT 45378; principal; 2023-12-03 07:45)
DX: Z12.11 Encounter for screening for malignant neoplasm of colon (principal); K64.8 Other hemorrhoids
CPT/HCPCS: G0121; 74018; J2704

== ENCOUNTER 2024-01-22 21:31 | Emergency (ER) | payer MEDICARE, SELFPAY ==
--- NOTE | 2024-01-22 | DI.RAD.S_ITS ---
PROCEDURE: XR CHEST 1V INDICATIONS: SHORTNESS OF BREATH TECHNIQUE: One view of the chest was acquired. COMPARISON: [facility], CR, XR CHEST 1V, 10/28/2023, 10:16. FINDINGS: Surgical changes and devices: None. Lungs and pleura: Lungs are clear. No pleural effusions or pneumothorax. Mediastinum: Mediastinal contours appear normal. Heart size is normal. Bones and chest wall: No suspicious bony lesions. Overlying soft tissues appear unremarkable. IMPRESSION: No acute cardiopulmonary abnormality is seen. Approved by: Pedro Stephenson M.D. on 01/22/2024 at 22:22
[2024-01-22 21:45] VITALS: BP 98/68
[2024-01-22] MEDS: METOPROLOL TARTRATE 5 MG/5 ML INJ IV (21:45)
[2024-01-22] MEDS: METOPROLOL ER 25 MG TABLET PO (21:45)
[2024-01-22] MEDS: APIXABAN 5 MG TABLET PO (23:14)
[2024-01-22] MEDS: LORazepam 2 MG/ML INJ 1 MG IV (23:34)
[2024-01-23 17:53] LABS: Add Manual Diff / Slide Review NO; Basophils Absolute Auto 0 /uL (0-100); Basophils Percent Auto 0.7 % (0-2); Eosinophils Absolute Auto 100 /uL (0-450); Eosinophils Percent Auto 2.7 % (2-4); Hematocrit 38.3 % (36-46); Hemoglobin 12.8 g/dL (12.0-16.0); Lymphocytes Absolute Auto 2100 /uL (1100-4500); Mean Corpuscular HGB Conc 33.5 % (30-36); Mean Corpuscular Volume 92.3 fL (80-100); Monocytes Absolute Auto 500 /uL (0-900); Monocytes Percent Auto 10.4 % (3-14); Neutrophils Absolute Auto 2000 /uL (1500-7000); Neutrophils Percent Auto 42.2 % (50-75); Platelet Count 226 X10^3/uL (150-400); Red Blood Cell Count 4.15 X10^6/uL (4.0-5.2); White Blood Cell Count 4.7 X10^3/uL (4.5-11.0)
[2024-01-23 17:55] LABS: HEMOLYSIS < 15 (0-50); Thyroid Stimulating Hormone 6.58 uIU/mL (0.47-4.68)
[2024-01-23 17:56] LABS: Potassium 3.5 mmol/L (3.4-5.1); Sodium 142 mmol/L (137-145); Troponin I < 0.012 ng/mL (0.01-0.034)
[2024-01-23 17:57] LABS: Alanine Aminotransferase 21 IU/L (<35); Albumin 4.8 g/dL (3.5-5.0); Albumin Globulin Ratio 1.5 (1.0-2.8); Alkaline Phosphatase 63 U/L (38-126); Aspartate Aminotransferase 37 IU/L (14-36); BUN Creatinine Ratio 19.1 (6-22); Bilirubin Total 0.9 mg/dL (0.2-1.3); Blood Urea Nitrogen 13 mg/dL (7-17); Calcium 9.6 mg/dL (8.4-10.2); Carbon Dioxide 31 mmol/L (22-32); Chloride 105 mmol/L (98-107); Estimated Glomerular Filt Rate > 60 mL/min (>60); Globulin 3.1 g/dL (1.7-4.1); Glucose 101 mg/dL (80-110); Total Protein 7.9 g/dL (6.3-8.2)
--- NOTE | 2024-01-23 18:46 | PC.NURSE ---
[facility] downtime 01/22/24 ~ 1999 = see paper downtime documentation
== END 2024-01-22 23:20 | disposition home or self-care (01) ==
PROVIDERS: Emergency Provider Emergency Medicine; PCP Nurse Practitioner
DX: I48.91 Unspecified atrial fibrillation (principal)
CPT/HCPCS: 71045; 80053; 84443; 84484; 85025; 93005; 93010; 96374; 96375; 99284; J2060

== ENCOUNTER → 2024-03-24 | Outpatient (CLI) | payer MEDICARE, SELFPAY ==
--- NOTE | 2024-03-24 | DI.CT.S_ITS ---
PROCEDURE: CT SINUS SCREEN WO CON INDICATIONS: CHRONIC PANSINUSITIS, ACUTE SINUSITIS TECHNIQUE: Noncontrast 3.0 mm axial images acquired from the frontal sinuses to the mid-sella, with coronal and sagittal reformats. For radiation dose reduction, the following was used: automated exposure control, adjustment of mA and/or kV according to patient size. COMPARISON: None. FINDINGS: Image quality: Excellent. Maxillary Sinuses: No bony remodeling or destruction. Mild mucosal thickening can be seen within the inferior maxillary sinuses. Ethmoid Air Cells: No bony remodeling or destruction. Sinuses are clear. Sphenoid Sinuses: No bony remodeling or destruction. Sinuses are clear. Frontal Sinuses: No bony remodeling or destruction. Sinuses are clear. Ostiomeatal Complexes: The ostiomeatal complexes are patent, yet they are constitutionally narrowed, with bilateral Ann Marie cells. Miscellaneous: Visualized intra-orbital contents are normal. There are bilateral cesar bullosa. There is mild rightward nasal septal deviation. IMPRESSION: Mild mucosal thickening seen within the inferior maxillary sinuses. The ostiomeatal complexes are patent, yet they are constitutionally narrowed, with bilateral Ann Marie cells. Bilateral cesar bullosa can be seen. Dictated by: Vinny Goodrich M.D. on 03/24/2024 at 11:00 Approved by: Vinny Goodrich M.D. on 03/24/2024 at 11:01
== END ==
PROVIDERS: Family Provider Nurse Practitioner; PCP Nurse Practitioner; Referring Provider Otolaryngology; Visit Provider Otolaryngology
DX: J32.4 Chronic pansinusitis (principal); J01.91 Acute recurrent sinusitis, unspecified; J34.3 Hypertrophy of nasal turbinates; J34.2 Deviated nasal septum
CPT/HCPCS: 70486

== ENCOUNTER → 2024-04-21 15:06 | Outpatient (CLI) | payer MEDICARE, SELFPAY ==
[2024-04-21 16:27] LABS: Free T4, Direct Thyroxine 1.08 ng/dL (0.78-2.19)
== END ==
PROVIDERS: Family Provider Nurse Practitioner; PCP Family Medicine; Referring Provider Family Medicine; Visit Provider Family Medicine
DX: F41.9 Anxiety disorder, unspecified (principal); E78.5 Hyperlipidemia, unspecified; R79.89 Other specified abnormal findings of blood chemistry; M81.0 Age-related osteoporosis without current pathological fracture; Z78.0 Asymptomatic menopausal state; I48.91 Unspecified atrial fibrillation
CPT/HCPCS: 36415; 84439; 84443

== ENCOUNTER → 2024-10-10 08:31 | Outpatient (CLI) | payer MEDICARE, SELFPAY ==
[2024-10-10 10:05] LABS: Add Manual Diff / Slide Review NO; Basophils Absolute Auto 0 /uL (0-100); Basophils Percent Auto 0.8 % (0-2); Eosinophils Absolute Auto 100 /uL (0-450); Eosinophils Percent Auto 2.1 % (2-4); Hematocrit 33.9 % (36-46); Hemoglobin 11.6 g/dL (12.0-16.0); Lymphocytes Absolute Auto 1300 /uL (1100-4500); Mean Corpuscular HGB Conc 34.3 % (30-36); Mean Corpuscular Hemoglobin 31.1 PG (26-34); Mean Corpuscular Volume 90.6 fL (80-100); Monocytes Absolute Auto 300 /uL (0-900); Monocytes Percent Auto 10.1 % (3-14); Neutrophils Absolute Auto 1700 /uL (1500-7000); Platelet Count 232 X10^3/uL (150-400); Red Blood Cell Count 3.74 X10^6/uL (4.0-5.2); Red Cell Distribution Width 13.5 % (11.6-14.8); White Blood Cell Count 3.4 X10^3/uL (4.5-11.0)
[2024-10-10 10:16] LABS: Alanine Aminotransferase 27 IU/L (<35); Albumin 4.5 g/dL (3.5-5.0); Albumin Globulin Ratio 1.7 (1.0-2.8); Alkaline Phosphatase 28 U/L (38-126); Aspartate Aminotransferase 45 IU/L (14-36); BUN Creatinine Ratio 23.8 (6-22); Bilirubin Total 1.3 mg/dL (0.2-1.3); Blood Urea Nitrogen 15 mg/dL (7-17); Calcium 9.6 mg/dL (8.4-10.2); Carbon Dioxide 28 mmol/L (22-32); Chloride 102 mmol/L (98-107); Cholesterol 202 mg/dL (140-199); Estimated Glomerular Filt Rate > 60 mL/min (>60); Globulin 2.7 g/dL (1.7-4.1); Glucose 84 mg/dL (80-110); HDL Cholesterol 71 mg/dL (40-60); HEMOLYSIS 63 (0-50); LDL Cholesterol Calculated 122 mg/dL (<100); Potassium 4.5 mmol/L (3.4-5.1); Sodium 138 mmol/L (137-145); Total Protein 7.2 g/dL (6.3-8.2); Triglycerides 44 mg/dL (35-150)
[2024-10-10 10:42] LABS: TSH w/ Reflex to FT4 1.58 uIU/mL (0.47-4.68)
== END ==
PROVIDERS: Family Provider Nurse Practitioner; PCP Family Medicine; Referring Provider Family Medicine; Visit Provider Family Medicine
DX: I48.91 Unspecified atrial fibrillation (principal); R79.89 Other specified abnormal findings of blood chemistry; M81.0 Age-related osteoporosis without current pathological fracture
CPT/HCPCS: 36415; 80053; 80061; 82306; 84443; 85025

== ENCOUNTER → 2024-10-20 06:44 | Outpatient (CLI) | payer MEDICARE, SELFPAY ==
--- NOTE | 2024-10-20 06:45 | DI.US.S_ITS ---
PROCEDURE: US ABDOMEN COMPLETE INDICATIONS: elevated liver enzymes TECHNIQUE: Real-time scanning was performed of the abdominal and retroperitoneal organs, with image documentation. COMPARISON: [facility], US, ABDOMEN COMPLETE, 08/26/2016, 8:02. FINDINGS: Liver: Liver is normal in size and mildly increased in echogenicity. Simple cyst within the caudate lobe measuring 1.5 centimeters. Gallbladder: Within normal limits. No gallstones or gallbladder wall thickening. Biliary ducts: Intrahepatic bile ducts are non-dilated. Extrahepatic bile duct caliber measures 5.5 mm. Normal is 6-7 mm or less in diameter, or 10 mm or less post-cholecystectomy. Pancreas: Visualized portions of the pancreas are sonographically normal. Spleen: Spleen is normal in size and homogeneous in echotexture. Kidneys: Kidneys are normal in size and echotexture. Right kidney measures 9.7 cm long; left kidney measures 10.3 cm long. No hydronephrosis or nephrolithiasis. No solid masses. Aorta: Visualized aorta is normal in caliber at less than 3 cm. Iliacs: Proximal common iliac arteries are normal in caliber at less than 2.5 cm. IVC: Intrahepatic inferior vena cava is patent. Miscellaneous: No free abdominal fluid. IMPRESSION: Liver is mildly increased in echogenicity, suggestive of mild hepatic steatosis. Remainder of the exam is within normal limits. Dictated by: Buzz Carreno M.D. on 10/20/2024 at 8:26 Approved by: Buzz Carreno M.D. on 10/20/2024 at 8:28
== END ==
PROVIDERS: Family Provider Nurse Practitioner; PCP Family Medicine; Referring Provider Family Medicine; Visit Provider Family Medicine
DX: R74.8 Abnormal levels of other serum enzymes (principal); K76.89 Other specified diseases of liver
CPT/HCPCS: 76700

== ENCOUNTER → 2024-11-09 10:06 | Outpatient (CLI) | payer MEDICARE, SELFPAY ==
--- NOTE | 2024-11-09 10:07 | DI.MG.S_ITS ---
MM screening mammo BI: 11/09/2024. BI-RADS: 1 CLINICAL: 69-year old female for bilateral screening mammogram. Tyrer-Cuzick lifetime risk of 5.6%. No personal or first-degree family history of breast cancer. PRIOR EXAMS 11/09/2023, 11/05/2022, 10/31/2021, 10/25/2020, 09/08/2019, 09/06/2018, 09/03/2017, 08/14/2016, 07/29/2016, 07/27/2015. MAMMOGRAPHY TECHNIQUE: 2D and 3D (tomosynthesis) digital mammographic views obtained, with additional images as needed for full coverage. Current study was also evaluated with a Computer Aided Detection (CAD) system. DENSITY C. The breasts are heterogeneously dense, which may obscure small masses. MAMMOGRAPHY FINDINGS Bilateral: No suspicious mass, asymmetry, microcalcification, or other abnormality seen. No significant change from comparison. IMPRESSION: * No evidence of malignancy. RECOMMENDATIONS Bilateral * Annual screening mammography. OVERALL ASSESSMENT CATEGORY BI-RADS-1: Negative. The [employer] recommends annual screening mammography beginning at age 40 for women with average risk of breast cancer. ELECTRONICALLY SIGNED: Aliyah Smalls M.D. on 11/09/2024 at 10:39:16 AM PT Interpreting Station ID: [id number]
== END ==
PROVIDERS: Family Provider Nurse Practitioner; PCP Family Medicine; Referring Provider Family Medicine; Visit Provider Family Medicine
DX: Z12.31 Encounter for screening mammogram for malignant neoplasm of breast (principal); R92.333 Mammographic heterogeneous density, bilateral breasts
CPT/HCPCS: 77063; 77067

== ENCOUNTER → 2024-12-23 10:52 | Outpatient (CLI) | payer MEDICARE, SELFPAY ==
[2024-12-23 12:47] LABS: Add Manual Diff / Slide Review NO; Basophils Absolute Auto 0 /uL (0-100); Eosinophils Absolute Auto 100 /uL (0-450); Hematocrit 35.7 % (36-46); Lymphocytes Absolute Auto 1300 /uL (1100-4500); Lymphocytes Percent Auto 39.1 % (25-40); Mean Corpuscular HGB Conc 33.7 % (30-36); Mean Corpuscular Hemoglobin 30.4 PG (26-34); Mean Corpuscular Volume 90.4 fL (80-100); Monocytes Absolute Auto 400 /uL (0-900); Monocytes Percent Auto 11.1 % (3-14); Neutrophils Absolute Auto 1500 /uL (1500-7000); Neutrophils Percent Auto 46.8 % (50-75); Platelet Count 209 X10^3/uL (150-400); Red Blood Cell Count 3.95 X10^6/uL (4.0-5.2); Red Cell Distribution Width 13.2 % (11.6-14.8); White Blood Cell Count 3.2 X10^3/uL (4.5-11.0)
[2024-12-23 13:39] LABS: HEMOLYSIS < 15 (0-50); Iron 92 ug/dL (37-170)
[2024-12-23 13:49] LABS: Percent Iron Saturation 34 % (15-50); Total Iron Binding Capacity 267 ug/dL (265-497); Transferrin 218 mg/dL (206-381)
[2024-12-23 15:01] LABS: Alanine Aminotransferase 30 IU/L (<35); Albumin 4.6 g/dL (3.5-5.0); Albumin Globulin Ratio 1.7 (1.0-2.8); Alkaline Phosphatase 39 U/L (38-126); Aspartate Aminotransferase 42 IU/L (14-36); Bilirubin Total 1.2 mg/dL (0.2-1.3); Calcium 9.6 mg/dL (8.4-10.2); Carbon Dioxide 32 mmol/L (22-32); Chloride 101 mmol/L (98-107); Globulin 2.7 g/dL (1.7-4.1); Glucose 77 mg/dL (70-99); HEMOLYSIS < 15 (0-50); Potassium 4.3 mmol/L (3.4-5.1); Sodium 139 mmol/L (137-145); Total Protein 7.3 g/dL (6.3-8.2)
[2024-12-23 15:31] LABS: BUN Creatinine Ratio 18.6 (6-22); Blood Urea Nitrogen 13 mg/dL (7-17); Estimated Glomerular Filt Rate > 60 mL/min (>60)
[2024-12-23 15:33] LABS: Ferritin 103 ng/mL (11-264)
== END ==
LOC: LAB 10:55
PROVIDERS: Family Provider Nurse Practitioner; PCP Family Medicine; Referring Provider Family Medicine; Visit Provider Family Medicine
DX: D64.9 Anemia, unspecified (principal); I48.91 Unspecified atrial fibrillation; E78.5 Hyperlipidemia, unspecified; D72.819 Decreased white blood cell count, unspecified
CPT/HCPCS: 36415; 80053; 82728; 83540; 83550; 85025

== ENCOUNTER → 2025-06-08 09:40 | Outpatient (CLI) | payer MEDICARE, SELFPAY ==
--- NOTE | 2025-06-08 09:42 | DI.RAD.S_ITS ---
PROCEDURE: XR FOOT RT MIN 3V INDICATIONS: R foot pain TECHNIQUE: 3 views of the foot were acquired. COMPARISON: None. FINDINGS: Bones: There are no osseous abnormalities Joints: Moderate 1st MTP and 2nd through 5th interphalangeal degeneration appreciated. Minimal degeneration seen throughout the midfoot . Soft tissues: Mild diffuse soft tissue swelling IMPRESSION: Degeneration Dictated by: Grover Chavez M.D. on 06/09/2025 at 11:42 Approved by: Grover Chavez M.D. on 06/09/2025 at 11:43
== END ==
PROVIDERS: Family Provider Nurse Practitioner; PCP Family Medicine; Referring Provider Family Medicine; Visit Provider Family Medicine
DX: M72.2 Plantar fascial fibromatosis (principal); M19.071 Primary osteoarthritis, right ankle and foot; M79.671 Pain in right foot
CPT/HCPCS: 73630

== ENCOUNTER 2025-08-16 15:53 | Emergency (ER) | payer MEDICARE, SELFPAY ==
[2025-08-16] VITALS (9 sets, daily range): BP systolic 130–143; BP diastolic 60–65; PULSE 60–77; RESP 16–18; TEMP 36.6; O2SAT 97–99; BMI 21.8
--- OUTSIDE RECORDS SUMMARY | 2025-08-16 15:57 | XMS_ITS | Encounter Summary ---
Author Organization [facility] Address [address] [place] [address] Care Team Providers Care Inpatient Pharmacist Name Role Phone Taina Mcallister MD Primary Care Provider [phone] Encounter Details Date Type Department Care Team (Late Contact Info) Description 03/30/2025 Abstract [facility] On[facility] [address], [address] [place] [address] Mary Kay Dinh ARNP [address] [place] [address] [address] [place], [place] [id number] Social History Tobacco Use Types Packs/Day Years Used Date Smoking Tobacco: Never Passive Smoke Exposure: Never Smokeless Tobacco: Never Alcohol Use Standard Drinks/Week Comments Not Currently 0 (1 standard drink = 0.6 oz pure alcohol) used to have 2 drinks daily - last drink 01/22/2024 Comments No Sex and Gender Information Value Date Recorded Sex Assigned at Female 02/11/2024 8:20 AM PDT Legal Sex Female 7:55 PM PDT Gender Identity Female 02/11/2024 8:20 AM PDT Sexual Orientation Straight 02/11/2024 8: 20 AM PDT documented as of this encounter Plan of Treatment Upcoming Encounters Date Type Department Care Team (Late Contact Info) Description 08/31/2025 11:00 AM PST Office Visit [facility] [address] [address] Rissa Higuera, DPM [address] [address] documented as of this encounter Visit Diagnoses Not on filedocumented in this encounter Care Teams Inpatient Pharmacist Relationship Specialty Start Date End Date Taina Mcallister MD [address] [place] [id number] PCP - General Family Medicine 01/20/25 documented as of this encounter
--- NOTE | 2025-08-16 16:23 | DI.RAD.S_ITS ---
PROCEDURE: XR CHEST 1V INDICATIONS: Chest Pain TECHNIQUE: One view of the chest was acquired. COMPARISON: [facility], CR, XR CHEST 1V, 01/22/2024, 21:26. [facility], CR, XR CHEST 1V, 10/28/2023, 10:16. FINDINGS: Surgical changes and devices: None. Lungs and pleura: Lungs are clear. No pleural effusions or pneumothorax. Mediastinum: Mediastinal contours appear normal. Heart size is normal. Bones and chest wall: No suspicious bony lesions. Overlying soft tissues appear unremarkable. IMPRESSION: No acute cardiopulmonary abnormality is seen. Dictated by: Francisco Lerner M.D. on 08/16/2025 at 16:40 Approved by: Francisco Lerner M.D. on 08/16/2025 at 16:41
--- NOTE | 2025-08-16 16:26 | EKG_ITS ---
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
--- NOTE | 2025-08-16 16:37 | ED.ARRPALP ---
HPI - Arrhythmia/Palpitations General Chief Complaint: Arrhythmia/Palpitations Stated Complaint: Arrhythmia Time Seen by Provider: 08/16/25 15:58 Source: patient Mode of arrival: Ambulatory History of Present Illness HPI narrative: Patient is a 70-year-old female who presents with pounding heart rate, and tachycardia to the 130s as measured by her apple watch that lasted approximately 20 minutes today. Past medical history significant for atrial fibrillation on apixaban and metoprolol. Patient states that over last 5 days, she has been having loud roaring heart rate in her ears Related Data Home Medications ?Medication ?Instructions ?Recorded ?Confirmed calcium [calcium citrate] 1 tab PO .QD 07/22/23 07/10/25 cetirizine 10 mg tablet (Zyrtec) 10 mg PO DAILY PRN Cold Sores 07/22/23 07/10/25 sodium bicarbonate-sodium ea .Route 07/22/23 07/10/25 chloride-neti pot nasal rinse with packet (Sinus Wash Neti Pot with packet) apixaban 5 mg tablet (Eliquis) 5 mg PO BID 04/21/24 07/10/25 cholecalciferol (vitamin D3) 25 25 mcg PO QID 04/21/24 07/10/25 mcg (1,000 unit) capsule metoprolol succinate 25 mg 12.5 mg PO DAILY 04/21/24 07/10/25 tablet,extended release 24 hr acetaminophen 325 mg tablet 325 mg PO ONCE 12/22/24 07/10/25 (Tylenol) Previous Rx's ?Medication ?Instructions ?Recorded valacyclovir 1 gram tablet 2,000 mg (2 x 1 gram) PO Q12H PRN 07/22/23 herpes simplex outbreaks #30 tabs alprazolam 0.25 mg tablet 0.125 mg (1/2 x 0.25 mg) PO 12/22/23 BEDTIME PRN anxiety #15 tabs denosumab 60 mg/mL subcutaneous 60 mg SUBCUT [id number] #1 mL 10/07/24 syringe (Prolia) gabapentin 100 mg capsule 200 mg (2 x 100 mg) PO DAILY #60 06/27/25 caps Allergies Allergy/AdvReac Type Severity Reaction Status Date / Time Gadolinium-Containing Allergy Unknown Verified 08/16/25 16:19 Contrast Medi (GADOLINIUM-CONTAINING CONTRAST MEDI) Review of Systems Review of Systems ROS Unobtainable: All systems reviewed & are unremarkable except as noted in HPI and below Patient History Medical History (Updated 08/16/25 @ 20:11 by Nargis Kim MD) High risk for fracture due to osteoporosis by DEXA scan Post-menopausal Osteoporosis Actinic keratosis Osteoarthritis Allergies Restless leg syndrome History of herpes simplex infection Recurrent sinusitis Fibroids (~2004) Hyperlipidemia Abdominal hernia History of skin cancer Anxiety Osteopenia after menopause (~2012) PVCs (premature ventricular contractions) Surgical History Anesthesia Status post embolization of uterine artery (~2004) Deviated nasal septum (~1994) Family History Father Cerebral degeneration Mother Skin cancer Stroke Grandmother History of heart disease Grandmother History of heart disease Grandfather History of heart disease Grandfather History of heart disease Social History Smoking Status: Never smoker alcohol intake: current Smoking Status: Never smoker alcohol intake frequency: 0-2 drinks per day Exam Narrative Exam Narrative: Vitals:? Afebrile, all other vitals within normal range. NSR on monitor. Gen:? Well-developed, well-nourished, no acute distress Cards:? Regular, no murmurs, rubs, gallops Pulm:? No increased work of breathing, and expiratory wheezing in upper lobes Abd:? Soft, nondistended, nontender Ext:? No peripheral edema in bilateral lower extremity Neuro:? A&O x4, cranial nerves grossly intact, moving all 4 extremities spontaneously Psych:? Appropriate Initial Vital Signs Initial Vital Signs: Vital Signs Temperature 97.8 F 08/16/25 16:19 Pulse Rate 70 08/16/25 16:19 Respiratory Rate 16 08/16/25 16:19 Blood Pressure 132/61 08/16/25 16:19 Pulse Oximetry 97 08/16/25 16:19 Oxygen Delivery Method Room Air 08/16/25 16:19 Course Orders Ordered: ED Orders 08/16/25 16:23 XR chest 1V Stat EKG-12 Lead Stat 08/16/25 16:40 Complete Blood Count AUTO DIFF Stat Comprehensive Metabolic Panel Stat Lipase Stat Magnesium Stat NT-proBNP (BNP-Adult 18+) Stat PTT Partial Thromboplastin Vicente Stat Prothrombin Time INR Stat Troponin & CK Cardiac Panel Stat 08/16/25 18:20 CT angio head and neck Stat Discontinued Medications Aspirin (Aspirin 81 Mg Chew Tab) 324 mg PO NOW ONE Stop: 08/16/25 16:23 Last Admin: 08/16/25 19:31 Dose: Not Given Vital Signs Vital signs: Vital Signs - 8 hr 08/16/25 16:19 08/16/25 17:52 08/16/25 17:53 Temperature 97.8 F Pulse Rate 70 61 Respiratory Rate 16 16 Blood Pressure 132/61 143/65 H Pulse Oximetry 97 99 Oxygen Delivery Method Room Air Room Air 08/16/25 17:53 08/16/25 18:00 08/16/25 18:00 Temperature Pulse Rate 60 64 Respiratory Rate 18 17 Blood Pressure 130/60 Pulse Oximetry 99 99 Oxygen Delivery Method Room Air 08/16/25 18:30 08/16/25 18:30 08/16/25 19:00 Temperature Pulse Rate 64 77 Respiratory Rate 18 Blood Pressure 137/63 Pulse Oximetry 98 98 Oxygen Delivery Method 08/16/25 19:30 08/16/25 20:00 08/16/25 20:16 Temperature Pulse Rate 63 67 Respiratory Rate 17 Blood Pressure 138/64 Pulse Oximetry 98 98 Oxygen Delivery Method Room Air 08/16/25 20:16 Temperature Pulse Rate 66 Respiratory Rate 17 Blood Pressure Pulse Oximetry 98 Oxygen Delivery Method Room Air MDM - Arrhythmia/Palpitations Lab Data 08/16/25 16:40 08/16/25 16:40 Labs: Lab Results 08/16/25 Range/Units 16:40 WBC 4.5 (4.5-11.0) X10^3/uL RBC 3.83 L (4.0-5.2) X10^6/uL Hgb 11.6 L (12.0-16.0) g/dL Hct 34.4 L (36-46) % MCV 89.8 (80-100) fL MCH 30.2 (26-34) PG MCHC 33.7 (30-36) % RDW 13.5 (11.6-14.8) % Plt Count 213 (150-400) X10^3/uL Neut % (Auto) 58.5 (50-75) % Lymph % (Auto) 29.5 (25-40) % [place] % (Auto) 9.4 (3-14) % Eos % (Auto) 1.6 L (2-4) % Baso % (Auto) 1.0 (0-2) % Neut # (Auto) 2600 (5504-7189) /uL Lymph # (Auto) 1300 (7345-2284) /uL [place] # (Auto) 400 (0-900) /uL Eos # (Auto) 100 (0-450) /uL Baso # (Auto) 0 (0-100) /uL PT 13.0 H (9.4-12.5) SECONDS INR 1.1 (0.9-1.3) APTT 27 (25.1-36.5) SECONDS Sodium 141 (137-145) mmol/L Potassium 4.0 (3.4-5.1) mmol/L Chloride 106 (98-107) mmol/L Carbon Dioxide 28 (22-32) mmol/L BUN 14 (7-17) mg/dL Creatinine 0.66 (0.52-1.04) mg/dL Estimated GFR > 60 (>60) mL/min BUN/Creatinine Ratio 21.2 (6-22) Glucose 93 (70-99) mg/dL Calcium 9.5 (8.4-10.2) mg/dL Magnesium 2.0 (1.6-2.3) mg/dL Total Bilirubin 0.8 (0.2-1.3) mg/dL AST 37 H (14-36) IU/L ALT 25 (<35) IU/L Alkaline Phosphatase 43 (38-126) U/L Total Creatine Kinase 97 (30-135) U/L Troponin I < 0.012 (0.01-0.034) ng/mL NT-Pro-B Natriuret Pep 240 H (<125) pg/mL Total Protein 7.2 (6.3-8.2) g/dL Albumin 4.3 (3.5-5.0) g/dL Globulin 2.9 (1.7-4.1) g/dL Albumin/Globulin Ratio 1.5 (1.0-2.8) Lipase 105 (23-300) U/L Imaging Data Chest x-ray: Radiologist's Impresson: PROCEDURE: XR CHEST 1V INDICATIONS: Chest Pain TECHNIQUE: One view of the chest was acquired. COMPARISON: [facility], CR, XR CHEST 1V, 01/22/2024, 21:26. [facility], CR, XR CHEST 1V, 10/28/2023, 10:16. FINDINGS: Surgical changes and devices: None. Lungs and pleura: Lungs are clear. No pleural effusions or pneumothorax. Mediastinum: Mediastinal contours appear normal. Heart size is normal. Bones and chest wall: No suspicious bony lesions. Overlying soft tissues appear unremarkable. IMPRESSION: No acute cardiopulmonary abnormality is seen. CTA - head and neck: Radiologist's Impresson: INDICATIONS: Pounding pulses roaring in ears TECHNIQUE: After the administration of intravenous contrast, 1 mm thick sections acquired from the aortic arch through the [place] of [place]. 3-dimensional oypwdpx-cmhznfhrg-wyywfgflnw (MIP) and/or volume rendering reformats were acquired of the central intracranial vasculature and neck separately. For radiation dose reduction, the following was used: automated exposure control, adjustment of mA and/or kV according to patient size. COMPARISON: None. FINDINGS: Image quality: Diagnostic. Cerebral CT Angiogram: Internal carotid arteries: No acute findings. Intracranial ICA are patent with no significant stenosis. No occlusion. No aneurysm. Anterior cerebral arteries: Unremarkable. No significant stenosis. No occlusion. No aneurysm. Middle cerebral arteries: Unremarkable. No significant stenosis. No occlusion. No aneurysm. Posterior cerebral arteries: Unremarkable. No significant stenosis. No occlusion. No aneurysm. Basilar artery: Unremarkable. No significant stenosis. No occlusion. No aneurysm. Vertebral arteries: Unremarkable as visualized. Dural venous sinuses: Unremarkable given phase of enhancement. Other: Arterial phase appearance of the brain parenchyma is unremarkable. Neck CT Angiogram: Internal carotid arteries: No significant calcified or noncalcified plaque at the bulbs. Widely patent ICA origins.. No significant stenosis. No dissection or occlusion. Common carotid arteries: No significant plaque. Patent origins.. No significant stenosis. No dissection or occlusion. External carotid arteries: Unremarkable. No occlusion. Vertebral arteries: Widely patent origins. Co- dominant sizes.. No significant stenosis. No dissection or occlusion. Aortic Arch and Mediastinum: Partially visualized aortic arch unremarkable without evidence of aneurysm. Origins of the great vessels unremarkable. Other: Mild cervical spine disc and endplate degenerative change. Arterial phase soft tissues of the neck and chest are otherwise unremarkable. IMPRESSION: No significant intracranial arterial abnormality is seen. No significant abnormality is seen within the arteries of the neck. Any quantitative measurements of stenosis were performed using NASCET criteria. Dictated by: Tami Alcantar M.D. on 08/16/2025 at 19:37 Approved by: Tami Alcantar M.D. on 08/16/2025 at 19:42 MDM Narrative Medical decision making narrative: Patient is a 70-year-old female with history of AFib who presents with increased sensation of Salas's hearing her heartbeat in her ears and at a single episode of tachycardia with a heart rate of 130s. EMR Review: Limited encounters EMR. Differential :diagnosis: Sinus tachycardia, atrial tachycardia, atrial fibrillation, atrial [place] odor, paroxysmal supraventricular tachycardia, AV reentry tachycardia, multifocal atrial tachycardia, electrolyte abnormalities, infection, other. Labs: CBC without leukocytosis, no left shift, was multiple short no anemia, platelets normal. PT 13, INR 1.1, APTT normal. Chemistry largely negative. Troponins undetectable. ProBNP 240. Lipase 105. Images: Chest x-ray head and neck CTA did not reveal any abnormalities. EK:26 normal sinus rhythm, HR 69, OK 152, QT 384, QTC 4 1, no left axis deviation, or in poor R-wave progression, right bundle branch block, no evidence of ischemia. This was compared to EKG obtained on 10/28/2023 in his largely unchanged. Consults: None. Disposition / ED Course Summary: The patient remained hemodynamically stable throughout her ED stay. She did not have any recurrent tachyarrhythmias while monitored, and her EKG showed normal sinus rhythm without acute changes. Laboratory evaluation?including CBC, chemistry panel, troponins, and coagulation studies?was reassuring. Chest X ray and CTA of the head and neck did not reveal any acute abnormalities. Her symptoms of hearing her heartbeat in her ears were not associated with neurologic deficits, and imaging was reassuring. Given her stable rhythm, normal workup, and absence of ongoing arrhythmia, she is appropriate for discharge with outpatient follow up for further rhythm evaluation. She is cardiology follow up in 2 weeks and was advised to keep this appointment. She was advised to return immediately for recurrent palpitations lasting longer than a few minutes, chest pain, shortness of breath, dizziness, syncope, new neurologic symptoms, or any worsening concerns. She was encouraged to follow up with her primary care provider and cardiology for possible ambulatory rhythm monitoring and further evaluation of her symptoms. She verbalized understanding and was discharged in stable condition. Discharge Plan Departure Patient Disposition: Home Clinical Impression: Heart rate fast Activity Restrictions/Additional Instructions: You were seen in the emergency department for fast heart rate and being able to hear your heartbeat in your ears. In the ER: -- EKG, chest x-ray, heart enzymes were negative for heart attack or heart strain -- CT of your neck did not reveal any clots or narrowing of your blood vessels -- Your electrolytes were normal -- During the entirety of your ER visit your heart rate and heart tracing were normal Recommend: -- Follow up with your previously scheduled cardiology appointment. Informed the stripe matcher of your symptoms today, workup obtained in the ER, for further management. -- Return to the ER if you develop any new or worsening symptoms to include chest pain, shortness of breath, nausea Prescriptions: No Action Eliquis 5 mg tablet 5 mg PO BID metoprolol succinate 25 mg tablet extended release 24 hr 12.5 mg PO DAILY cholecalciferol (vitamin D3) 25 mcg (1,000 unit) capsule 25 mcg PO QID Prolia 60 mg/mL syringe 60 mg SUBCUT [id number] Qty: 1 2RF acetaminophen [Tylenol] 325 mg tablet 325 mg PO ONCE alprazolam 0.25 mg tablet 0.125 mg PO BEDTIME PRN (Reason: anxiety) Qty: 15 0RF gabapentin 100 mg capsule 200 mg PO DAILY Qty: 60 3RF calcium [calcium citrate] 1 tab PO .QD cetirizine [Zyrtec] 10 mg tablet 10 mg PO DAILY PRN (Reason: Cold Sores) Sinus Wash Neti Pot Packet With Rinse Device .Route Rx Instructions: Use Neti type pot versus squeeze bottle nasal spray daily valacyclovir 1 gram tablet 2,000 mg PO Q12H PRN (Reason: herpes simplex outbreaks) Qty: 30 3RF Rx Instructions: Take 2 tabs at onset of symptoms and another 2 tabs 12 hours after that, rx may treat multiple outbreaks Referrals: Taina Baig MD [Primary Care Provider, Family Practice] Stand Alone Forms: Patient Portal/API
[2025-08-16 16:46] LABS: Add Manual Diff / Slide Review NO; Hematocrit 34.4 % (36-46); Hemoglobin 11.6 g/dL (12.0-16.0); Lymphocytes Absolute Auto 1300 /uL (1100-4500); Mean Corpuscular HGB Conc 33.7 % (30-36); Mean Corpuscular Hemoglobin 30.2 PG (26-34); Mean Corpuscular Volume 89.8 fL (80-100); Platelet Count 213 X10^3/uL (150-400)
[2025-08-16 17:11] LABS: INR 1.1 (0.9-1.3); Prothrombin Time 13.0 SECONDS (9.4-12.5)
[2025-08-16 17:14] LABS: PTT Partial Thromboplastin Tim 27 SECONDS (25.1-36.5)
[2025-08-16 17:17] LABS: Alanine Aminotransferase 25 IU/L (<35); Albumin 4.3 g/dL (3.5-5.0); Albumin Globulin Ratio 1.5 (1.0-2.8); Alkaline Phosphatase 43 U/L (38-126); Blood Urea Nitrogen 14 mg/dL (7-17); Calcium 9.5 mg/dL (8.4-10.2); Carbon Dioxide 28 mmol/L (22-32); Chloride 106 mmol/L (98-107); Creatine Kinase 97 U/L (30-135); Estimated Glomerular Filt Rate > 60 mL/min (>60); Globulin 2.9 g/dL (1.7-4.1); Glucose 93 mg/dL (70-99); HEMOLYSIS < 15 (0-50); Lipase 105 U/L (23-300); Magnesium 2.0 mg/dL (1.6-2.3); Potassium 4.0 mmol/L (3.4-5.1); Sodium 141 mmol/L (137-145); Total Protein 7.2 g/dL (6.3-8.2)
[2025-08-16 17:29] LABS: NT-proBNP (BNP-Adult 18+) 240 pg/mL (<125); Troponin I < 0.012 ng/mL (0.01-0.034)
--- NOTE | 2025-08-16 18:20 | DI.CT.S_ITS ---
PROCEDURE: CT ANGIO HEAD AND NECK INDICATIONS: Pounding pulses roaring in ears TECHNIQUE: After the administration of intravenous contrast, 1 mm thick sections acquired from the aortic arch through the [place] of [place]. 3-dimensional nwymsrl-bntortody-nrggrhwcza (MIP) and/or volume rendering reformats were acquired of the central intracranial vasculature and neck separately. For radiation dose reduction, the following was used: automated exposure control, adjustment of mA and/or kV according to patient size. COMPARISON: None. FINDINGS: Image quality: Diagnostic. Cerebral CT Angiogram: Internal carotid arteries: No acute findings. Intracranial ICA are patent with no significant stenosis. No occlusion. No aneurysm. Anterior cerebral arteries: Unremarkable. No significant stenosis. No occlusion. No aneurysm. Middle cerebral arteries: Unremarkable. No significant stenosis. No occlusion. No aneurysm. Posterior cerebral arteries: Unremarkable. No significant stenosis. No occlusion. No aneurysm. Basilar artery: Unremarkable. No significant stenosis. No occlusion. No aneurysm. Vertebral arteries: Unremarkable as visualized. Dural venous sinuses: Unremarkable given phase of enhancement. Other: Arterial phase appearance of the brain parenchyma is unremarkable. Neck CT Angiogram: Internal carotid arteries: No significant calcified or noncalcified plaque at the bulbs. Widely patent ICA origins.. No significant stenosis. No dissection or occlusion. Common carotid arteries: No significant plaque. Patent origins.. No significant stenosis. No dissection or occlusion. External carotid arteries: Unremarkable. No occlusion. Vertebral arteries: Widely patent origins. Co- dominant sizes.. No significant stenosis. No dissection or occlusion. Aortic Arch and Mediastinum: Partially visualized aortic arch unremarkable without evidence of aneurysm. Origins of the great vessels unremarkable. Other: Mild cervical spine disc and endplate degenerative change. Arterial phase soft tissues of the neck and chest are otherwise unremarkable. IMPRESSION: No significant intracranial arterial abnormality is seen. No significant abnormality is seen within the arteries of the neck. Any quantitative measurements of stenosis were performed using NASCET criteria. Dictated by: Tami Alcantar M.D. on 08/16/2025 at 19:37 Approved by: Tami Alcantar M.D. on 08/16/2025 at 19:42
== END 2025-08-16 20:26 | disposition home or self-care (01) ==
PROVIDERS: Emergency Provider Student in an Organized Health Care Education/Training Program; Family Provider Nurse Practitioner; PCP Family Medicine
DX: R00.0 Tachycardia, unspecified (principal)
CPT/HCPCS: 70496; 70498; 71045; 80053; 82550; 83690; 83735; 83880; 84484; 85025; 85610; 85730; 93005; 99283; Q9967